=== PATIENT | male | born 1975 | race Caucasian/White ===

== ENCOUNTER 2024-10-01 11:15 | Emergency (ER) | payer OTHER, SELFPAY ==
[2024-10-01 11:16] VITALS: BP 141/101; PULSE 78; RESP 13; TEMP 36.3; O2SAT 96; BMI 26.7
[2024-10-01 11:18] VITALS: BP 141/101; PULSE 78; RESP 15; TEMP 36.2; O2SAT 98
[2024-10-01 12:18] VITALS: BP 140/90; PULSE 78; RESP 16; TEMP 36.6; O2SAT 99
[2024-10-01] MEDS: Lidocaine 1% (20 ml mdv) 20 ML Vial INFILT (12:54)
[2024-10-01] MEDS: Ibuprofen 600 MG Tablet PO (12:54)
--- NOTE | 2024-10-01 12:54 | CONS.ORTHO ---
HPI Consult Data Date of Consult: 10/01/24 HPI Narrative HPI Narrative: CASSY SEWELL, is a 49 M who presents elbow bursitis infection and cellulitis. I was called by Dr. Romero today at 12:32 PM they had a question about whether or not to aspirate the infected bursa. The elbow according to the emergency department physician had full range of motion and no concern for septic joint. The provider stated the patient has had bursitis and pain at the posterior aspect of the elbow now for a week. [facility] Medical History (Updated 10/01/24 @ 12:55 by Pramod Roberto MD) Bursitis of elbow Medical History no medical history Allergy/AdvReac Type Severity Reaction Status Date / Time No Known Allergies Allergy Verified 10/01/24 11:18 Family History no significant family his Surgical History no surgical history Social History Smoking Status: Never smoker Vital Signs Vital Signs Vital Signs: 10/01/24 11:16 10/01/24 11:18 10/01/24 12:18 Temperature 97.3 F L 97.1 F L 97.9 F Temperature Source Temporal Oral Oral Pulse Rate 78 78 78 Respiratory Rate 13 15 16 Blood Pressure 141/101 H 141/101 H 140/90 H Blood Pressure Mean 114 114 106 Pulse Ox 96 98 99 Oxygen Delivery Method Room Air Room Air Room Air Weight Weight: 197 lb Body Mass Index (BMI) 26.7 Assessment & Plan Assessment/Plan (1) Bursitis of elbow: PLAN: 49-year-old man with elbow bursa infection plus minus cellulitis. I do recommend blood work workup x-rays as well as go ahead with an aspiration of the infected bursa sent for the lab for Gram stain c and s and full workup. If the patient is stable okay to put them on oral antibiotics with a dressings and follow-up with myself within 1-2 business days. Otherwise if they are unstable or require surgical drainage then they should be admitted under the hospitalist service and I should be notified if they are admitted and treated as an outpatient. understood and in agreement with the plan.
[2024-10-01 13:00] VITALS: BP 140/72; PULSE 73; RESP 14; TEMP 36.6; O2SAT 99
--- NOTE | 2024-10-01 13:26 | EX.ED.DYSGE1 ---
HPI History of Present Illness Chief Complaint: Cellulitis Informant: patient Narrative Narrative: Patient is a 49-year-old male with no stated past medical history presenting with worsening redness and swelling of his left elbow. Patient has a remote history of tendinitis in his right elbow. He states the past week he has mild discomfort in his left elbow and then yesterday noticed swelling and redness. The redness is spread and he initially went to urgent care today who was concerned about a septic bursitis/septic joint and sent him to the ER. Patient denies any systemic symptom such as fever, chills, generalized malaise, nausea or vomiting. No associate numbness or tingling. Denies any trauma. Does report eventually that he does remember small abrasion to the area but denies anything significant. Denies any history of immunosuppression. Is not a diabetic. No other complaints or concerns at this time. States the pain is mild and worse when he fully flexes or extends his elbow. Did not take anything for pain prior to arrival. [facility] Medical History Bursitis of elbow Medical History no medical history Home Medications ?Medication ?Instructions ?Recorded ?Last Taken ?Type doxycycline hyclate 100 mg tablet 100 mg PO BID #20 tabs 10/01/24 Unknown Rx Allergy/AdvReac Type Severity Reaction Status Date / Time No Known Allergies Allergy Verified 10/01/24 11:18 Family History no significant family his Surgical History no surgical history Social History Smoking Status: Never smoker [facility] ED Constitutional Constitutional ED: Denies chills or fever(s) Gastrointestinal Gastrointestinal: Denies nausea or vomiting Musculoskeletal Musculoskeletal: Reports other Details: Left elbow pain, swelling and redness ; Denies arthralgias Integumentary Reports rash Neurologic Neurologic: Denies paresthesias or weakness Hematologic/Lymphatic Hematologic/Lymphatic: Denies easy bleeding or easy bruising EXAM Physical Exam Const Vital Signs: 10/01/24 11:16 10/01/24 11:18 10/01/24 12:18 Temperature 97.3 F L 97.1 F L 97.9 F Temperature Source Temporal Oral Oral Pulse Rate 78 78 78 Respiratory Rate 13 15 16 Blood Pressure 141/101 H 141/101 H 140/90 H Blood Pressure Mean 114 114 106 Pulse Ox 96 98 99 Oxygen Delivery Method Room Air Room Air Room Air 10/01/24 13:00 10/01/24 15:00 Temperature 98 F Temperature Source Oral Pulse Rate 73 70 Respiratory Rate 14 12 Blood Pressure 140/72 H 120/65 Blood Pressure Mean 94 83 Pulse Ox 99 99 Oxygen Delivery Method Room Air Positive well nourished and well developed General Appearance ED: well developed and NAD Chest Wall inspection of chest normal and palpation of chest normal Resp normal respiratory effort and clear to auscultation bilaterally Cardio regular rate and regular rhythm Extremity Extremity Narrative: Localized swelling, redness and fluctuance of the left elbow with mild tenderness to palpation. No short arc range of motion pain or effusion noted of the left elbow. Compartments are soft of the arm and forearm. Neuro oriented x3 and no sensory deficits noted Sensorium / Orientation: alert Motor Exam: strength 5/5 throughout; Negative for general weakness Psych mental status grossly normal Skin Skin Narrative: Erythema and warmth of the left olecranon and forearm approximately 4 cm x 7 cm with no associated lymphangitic streaking. No associated drainage appreciated. MDM MDM MDM Narrative Medical decision making narrative: Patient valuated for increased redness and swelling of his left elbow. On exam patient appears to have a septic bursitis. There is overlying redness and warmth concerning for associated cellulitis. No associated magic streaking. He does not have short arc range of motion pain low suspicion for intra-articular infection or gout. Given the overlying of redness/skin changes I did discuss with Dr. Roberto about whether to proceed with fluid sampling from the bursa. He did recommend proceeding with this. He states after that he recommends by the patient antibiotics and follow-up in the office in the next few days. He will aspiration of the bursa is performed. There is a delay on obtaining the cell counts. Cultures also sent. Will start the patient on doxycycline and discharged home with outpatient orthopedic follow-up. Patient having minimal pain and counseled to alternate ibuprofen and needed for discomfort. Given return precautions. Discharged home in stable condition. Lab Data Labs: Laboratory Results - last 24 hr 10/01/24 13:45 Synovial WBC 2.2820 H Synovial RBC 0.[address] Cell [address] 2.3140 H Synov Polynuclear WBCs 1.039 Synov Mononuclear WBCs 1.243 Synovial Polynuclear % 45.6 Synovial Mononuclear % 54.4 Procedures Other Procedures Procedure(s): Left elbow bursa drainage Informed consent obtained. Ultrasound used to visualize the area of fluid collection. Site prepped with Betadine. 1% lidocaine injected subcutaneously for analgesia. An 18-gauge needle then introduced via negative aspiration. In an attempt to avoid going through any erythema initially tried a lateral approach with no fluid drained. Area prepped again with ChloraPrep. Posterior approach directly over the bursa then used an approximately 4 cc of straw-colored and then later blood-tinged fluid obtained. Patient tolerated procedure well with no immediate complications. Lab sample sent. Minimal blood loss. Bleeding controlled with direct pressure and Band-Aid applied. Discharge Plan Triage Chief Complaint: Cellulitis ED Provider: Archana Romero Dx/Rx/DC Orders Clinical Impression: Septic olecranon bursitis of left elbow Instructions: ED Bursitis Prescriptions: New doxycycline hyclate 100 mg tablet 100 mg PO BID Qty: 20 0RF Primary Care Provider: Ramirez Cramer Referrals: Ramirez Cramer DO [Primary Care Provider] - Pramod Roberto MD [Med Staff - Active Staff] - Activity Restrictions/Additional Instructions: You may alternate ibuprofen and Tylenol as needed for discomfort or pain. Will contact you for lab results require that we change antibiotics or change the plan. Take antibiotics as prescribed. Antibiotics are likely to make you sensitive to the sun so please make sure you are wearing sunscreen or avoid extended sun exposure while on them. If you develop a fever or worsening pain or redness please return to the emergency room. Wear Soto wrap as needed to help light pressure and help with the swelling. Print Language: Cameroonian Disposition Disposition: Home, Self Care Discharge Date/Time: 10/01/24 16:05
[2024-10-01 14:04] LABS: Pathologist Comment May follow
[2024-10-01 15:00] VITALS: BP 120/65; PULSE 70; RESP 12; O2SAT 99
[2024-10-01] MEDS: Doxycycline 100 MG CAPSULE PO (16:02)
[2024-10-01 17:20] LABS: Synovial Fld Mononuclear WBC # 1.243 10^3/ul; Synovial Fld Mononuclear WBC % 54.4 %; Synovial Fld Polynuclear WBC # 1.039 10^3/uL; Synovial Fld Polynuclear WBC % 45.6 %
[2024-10-01 20:23] LABS: Lymph 6 %; Monocyte /Synovial Fluid 27 %; Neutrophil 67 % (0-25)
[2024-10-01 20:30] LABS: Color / Synovial Fluid Red (Pale Yellow)
[2024-10-01 20:31] LABS: Appearance /Synovial Fluid Opaque (CLEAR); Body Fluid QC Type(s) BF00002Q
[2024-10-01 20:33] LABS: Source / Synovial Fluid LT ELBOW BURSA
[2024-10-01 20:36] LABS: AUTO B FLUID DILUENT BKGD CT WBC <0.1 RBC <0.01 (W<.1,R<.01)
== END 2024-10-01 16:05 | disposition home or self-care (01) ==
PROVIDERS: Emergency Provider Emergency Medicine; PCP Family Medicine; Visit Provider Emergency Medicine
DX: M71.122 Other infective bursitis, left elbow (principal); L03.114 Cellulitis of left upper limb
CPT/HCPCS: 20605; 87070; 87075; 87205; 89050; 89051; 99282